=== PATIENT | male | born 1990 | race Caucasian/White ===

== ENCOUNTER 2020-09-20 11:50 | Day surgery (SDC) | payer MEDICAID ==
[2020-09-20] MEDS ORDERED: Ropivacaine 0.5% 5 MG/ML 30 ML SDV INJECT ONE (13:30)
[2020-09-20] MEDS ORDERED: Iopamidol 200-M 10 ML vial ITHECAL ONE (13:30)
[2020-09-20] MEDS ORDERED: Lidocaine 2% 5 ML SDV INJECT ONE (13:30)
[2020-09-20] MEDS ORDERED: Betamethasone Acetate/Betamethasone Sod Phosphate 30 MG/5 ML MDV EPIDUR ONE (13:30)
--- NOTE | 2020-09-20 15:35 | PCM.OPNOTE ---
- General Post-Op/Procedure Note Date of Surgery/Procedure: 09/20/20 Operative Procedure(s): Screening colonoscopy Findings: Rectal polyp Pre Op Diagnosis: Screening colonoscopy Post-Op Diagnosis: rectal polyp Anesthesia Technique: MAC Primary Surgeon: Sarina Haider Condition: Good
--- NOTE | 2020-09-20 20:50 | OR ---
SURGEON: Vandana Iverson D.O. DATE OF PROCEDURE: 09/20/2020 PRIMARY SURGEON: Vandana Iverson D.O. PRESS BUCKER: OR staff present: 1. Jean-Paul Barnhart RN. 2. Amanuel Lopes RN. 3. Julio Bledsoe, RT. PREOPERATIVE DIAGNOSES: 1. L4-5 degenerative disk disease. 2. Chronic bilateral radiculopathy, L4-5 distribution, lower extremities. 3. Chronic low back pain. POSTOPERATIVE DIAGNOSES: 1. L4-5 degenerative disk disease. 2. Chronic bilateral radiculopathy, L4-5 distribution, lower extremities. 3. Chronic low back pain. PROCEDURES PERFORMED: 1. Right transforaminal epidural steroid injection at L4. 2. Left transforaminal epidural steroid injection at L4. 3. Fluoroscopic guidance for needle placement. 4. Local with oral Valium for sedation. SCREENING QUESTIONS: The patient answered "no" to all of the following questions: 1. Are you allergic to iodine, Betadine or latex? 2. Do you have a bleeding disorder? 3. Do you have any joint replacements, heart valve replacements, or a pacemaker? 4. Are you allergic to anti-inflammatories or blood thinners? 5. Do you have any current local or systemic infections? DESCRIPTION OF PROCEDURE: The patient had the procedure thoroughly explained including risks, benefits and alternatives. Consent was signed in my clinic indicating understanding and willingness to proceed. The patient presented to [facility] where the patient was escorted to the dressing room to disrobe and change into a hospital gown. Preoperative vital signs were taken and stable. The patient reported that Valium was taken prior to the procedure. The patient was brought to the procedure room and placed in the prone position on the table. A pillow was placed under the abdomen in order to flatten the lumbar lordosis. The back was prepped with ChloraPrep and sterilely draped. All personnel in the operating room were dressed in appropriate attire including surgical scrubs, head and shoe covers. This was to ensure sterility while in the treatment room. During the time fluoroscopy was in use, all personnel in the operating room wore lead cool with thyroid collars. Sterile technique was used during the procedure. The fluoroscope was placed for the right L4 transforaminal epidural steroid injection. There was no sign of infection at the skin site for needle insertion. The skin was anesthetized with 2% lidocaine with a 27 gauge 1-1/2 inch needle. Then a 22 gauge 3-1/2 inch spinal needle, advanced to the right foramen at the "6 oclock postion of the Brennan Dog". Under direct fluoroscopic guidance needle position was verified in three views; AP, oblique and lateral, with 0.2 cubic centimeters increments of Isovue-200 dye. No intravascular flow pattern was observed under live fluoroscopy.Then 6 milligrams of Celestone and local was slowly injected after negative aspiration of heme, cerebrospinal fluid and no paresthesias were noted. The needle was cleared prior to removal from the skin. The procedure was then repeated on the left No adverse reactions were noted. The patient was brought to the recovery room awake and in good condition by my staff. The patient was monitored and discharge instructions were given after a brief stay in the recovery area. Both oral and written discharge and follow up instructions were given. The patient will follow up in the clinic in 3-4 weeks post procedure to evaluate the efficacy. The patient verbalized understanding including understanding of those signs and symptoms that would require emergency care and knows how to contact the office if there are any problems or questions in the meantime. PREOPERATIVE PAIN: 5+/10. POSTOPERATIVE PAIN: 0/10. PLAN: Follow up in the pain clinic in 3 weeks. KATHY ENGEL /[id number] HARESH
== END 2020-09-20 13:34 ==
LOC: MW.SDS 11:50
PROVIDERS: ATTEND Anesthesiology
DX: G89.29 Other chronic pain (principal); M51.16 Intervertebral disc disorders with radiculopathy, lumbar region; M51.17 Intervertebral disc disorders with radiculopathy, lumbosacral region; M47.26 Other spondylosis with radiculopathy, lumbar region; F17.210 Nicotine dependence, cigarettes, uncomplicated; E66.9 Obesity, unspecified; Z68.38 Body mass index [BMI] 38.0-38.9, adult; Z88.0 Allergy status to penicillin
CPT/HCPCS: 64483; J0702; J2795; Q9966

== ENCOUNTER 2024-02-16 16:49 | Emergency (ER) | payer MEDICAID ==
[2024-02-16] MEDS ORDERED: Sodium Chloride 0.9% 2.5 ML Syringe FLUSH PRN (16:53)
[2024-02-16] MEDS ORDERED: Sodium Chloride 0.9% 10 ML Syringe FLUSH PRN (16:53)
[2024-02-16] MEDS: Iopamidol 755 MG/ML 500 ML Multipack Bottle IVPUSH STA (17:16)
[2024-02-16] MEDS: Cyclobenzaprine 10 MG Tab PO ONE (18:30)
[2024-02-16] MEDS: Acetaminophen/HYDROcodone 325-5 MG Tab PO ONE (18:30)
[2024-02-16] MEDS: Ketorolac 30 MG/ML SDV IVPUSH ONE (18:30)
[2024-02-16 18:33] LABS: BASOPHILS ABSOLUTE AUTO 0.03 K/uL (0.00-0.20); BASOPHILS PERCENT AUTO 0.1 % (0.0-1.0); EOSINOPHILS ABSOLUTE AUTO 0.01 K/uL (0.00-0.45); HEMATOCRIT 44.5 % (42.0-52.0); HEMOGLOBIN 15.7 g/dL (14.0-18.0); IMMATURE GRAN ABSOLUTE AUTO 0.11 K/uL (0.00-0.05); IMMATURE GRAN PERCENT AUTO 0.5 % (0.0-0.4); LYMPHOCYTES ABSOLUTE AUTO 1.07 K/uL (1.00-4.80); LYMPHOCYTES PERCENT AUTO 5.3 % (24.0-44.0); MEAN CORPUSCULAR HEMOGLOBIN 31.5 pg (28.0-32.0); MEAN CORPUSCULAR HGB CONC 35.3 g/dL (32.0-36.0); MEAN CORPUSCULAR VOLUME 89.2 fL (83.0-99.0); MEAN PLATELET VOLUME 9.1 fL (9.4-12.4); MONOCYTES ABSOLUTE AUTO 1.23 K/uL (0.00-0.80); MONOCYTES PERCENT AUTO 6.1 % (0.0-8.0); NEUTROPHILS ABSOLUTE AUTO 17.69 K/uL (1.80-7.70); PLATELET COUNT,PLT 233 K/uL (150-400); RED BLOOD CELL COUNT 4.99 M/uL (4.52-5.90); WHITE BLOOD CELL COUNT,WBC 20.14 K/uL (3.9-11.3)
[2024-02-16 18:59] LABS: A/G RATIO 1.3 (0.9-1.6); ALANINE AMINOTRANSFERASE,ALT 36 IU/L (14-63); ALKALINE PHOSPHATASE 72 U/L (46-116); ASPARTATE AMNIOTRANSFERASE,AST 32 IU/L (15-37); BILIRUBIN TOTAL 0.6 mg/dL (0.2-1.0); BLOOD UREA NITROGEN,BUN 21 mg/dL (7.0-18.0); CALCIUM 8.8 mg/dL (8.5-10.1); CARBON DIOXIDE,CO2 28.9 mmol/L (21.0-32.0); CHLORIDE,CL 105 mmol/L (98-107); CREATININE 1.4 mg/dL (0.8-1.3); EST CRCL DRUG DOSING (CG) 75.05 mL/min; GLUCOSE RANDOM 119 mg/dL (74-106); POTASSIUM,K 3.8 mmol/L (3.5-5.1); PROTEIN TOTAL,TP 7.1 g/dL (6.4-8.2); SODIUM,NA 142 mmol/L (136-148)
[2024-02-16 19:04] LABS: ESTIMATED GFR 68 mL/min (>60); ETHANOL BLOOD MEDICAL < 3.0 mg/dL
[2024-02-16] MEDS: Lidocaine 4% 1 each Patch TOP STA (20:36)
[2024-02-16 21:30] VITALS: BP 110/65; PULSE 90
== END 2024-02-16 21:26 | disposition home or self-care (01) ==
LOC: MW.ED 16:49
DX: S42.001A Fracture of unspecified part of right clavicle, initial encounter for closed fracture (principal); S09.90XA Unspecified injury of head, initial encounter; S22.089A Unspecified fracture of T11-T12 vertebra, initial encounter for closed fracture; Z88.0 Allergy status to penicillin; Z79.899 Other long term (current) drug therapy; Z86.16 Personal history of COVID-19; Z75.8 Other problems related to medical facilities and other health care; V86.55XA Driver of 3- or 4- wheeled all-terrain vehicle (ATV) injured in nontraffic accident, initial encounter
CPT/HCPCS: 36415; 70450; 71260; 72125; 72128; 72131; 73030; 74177; 80053; 80307; 85025; 96374; 99285; A9270; J1885; Q9967; 99284

== ENCOUNTER 2024-02-19 13:04 | Day surgery (SDC) | payer OTHER ==
[~2024-02-19 13:04] MED LIST: Albuterol 0.083% 2.5 MG/3 ML Neb Soln NEB PRN; HYDROmorphone 1 MG/ML Syringe IVPUSH PRN; Metoclopramide 10 MG/2 ML SDV IVPUSH PRN; Morphine 2 MG/ML SYRINGE IVPUSH PRN; Naloxone 0.4 MG/ML SDV IVPUSH PRN; Ondansetron 4 MG/2 ML SDV IVPUSH PRN; Phenylephrine HCl In 0.9% NaCl 1 MG/10 ML Syringe IVPUSH PRN; ceFAZolin 2 GM in Sodium Chloride 0.9% 50 ML IV ONE; fentaNYL 50 MCG/ML SDV IVPUSH PRN
[2024-02-19] MEDS: Lactated Ringers 1,000 ML IV SCH (13:47)
[2024-02-19] MEDS ORDERED: Lidocaine 2% 5 ML SDV ONE (14:05)
[2024-02-19] MEDS ORDERED: Ropivacaine 0.5% 5 MG/ML 30 ML SDV ONE (14:05)
[2024-02-19] MEDS ORDERED: Propofol 200 MG/20 ML SDV ONE ×2 (14:43→15:47)
[2024-02-19] MEDS ORDERED: fentaNYL 250 MCG/5 ML SDV ONE ×2 (14:43→16:14)
[2024-02-19] MEDS ORDERED: Ketamine HCL/NACL, ISO-OSM 50 MG/5 ML Syringe ONE (14:56)
[2024-02-19] MEDS ORDERED: Ondansetron 4 MG/2 ML SDV ONE ×2 (15:05→16:33)
[2024-02-19] MEDS ORDERED: Sugammadex Sodium 200 MG/2 ML VIAL IV ONE (15:07)
[2024-02-19] MEDS ORDERED: Dexamethasone 4 MG/ML 5 ML MDV ONE (16:33)
[2024-02-19] MEDS ORDERED: Ketorolac 30 MG/ML SDV ONE (16:33)
[2024-02-19 18:11] VITALS: BP 152/86; PULSE 98
== END 2024-02-19 18:25 | disposition home or self-care (01) ==
LOC: MW.SDS 13:04
PROVIDERS: ATTEND Orthopaedic Surgery
DX: S42.021A Displaced fracture of shaft of right clavicle, initial encounter for closed fracture (principal); I50.9 Heart failure, unspecified; E66.9 Obesity, unspecified; Z88.0 Allergy status to penicillin; Z79.899 Other long term (current) drug therapy; Z68.34 Body mass index [BMI] 34.0-34.9, adult
CPT/HCPCS: 23515; C1713; C1776; J0131; J1100; J1885; J2405; J2704; J2795; J3010; J7120; 00450; 64415; J3490